=== PATIENT | female | born 1980 | race Caucasian/White ===

== ENCOUNTER → 2024-08-31 12:48 | Outpatient (REF) | payer OTHER, SELFPAY | LOC: PAVMRI 12:48 | PROVIDERS: ATTENDING PHYSICIAN Orthopaedic Surgery; FAMILY PHYSICIAN Family Medicine | DX: M75.121 Complete rotator cuff tear or rupture of right shoulder, not specified as traumatic (principal) | CPT/HCPCS: 73221 ==